=== PATIENT | male | born 1945 | race African-American/Black ===

== ENCOUNTER 2019-12-29 20:05 | Inpatient (IN) | payer MEDICARE, MEDICAID ==
[~2019-12-29] VITALS: Ht 172.7 cm; Wt 77.2 kg
[2019-12-29] MEDS ORDERED: SODIUM CHLORIDE 0.9% 1000ML BAG (SEPSIS BOLUS) IV ONE (21:15)
[2019-12-29] MEDS ORDERED: PIPERACILLIN/TAZOBACTAM 3.375GM/50ML PREMIX IV NR (21:45)
[2019-12-29 21:48] LABS: BASOPHILS % 0.3 % (0.0-2.0); HEMOGLOBIN. 14.3 g/dL (14.0-18.0); LYMPHOCYTES % 20.6 % (20.0-50.0); MEAN CORPUSCULAR HEMOGLOBIN 23.7 pg (28.0-32.0); MEAN CORPUSCULAR VOLUME 71.4 fL (80.0-94.0); MEAN PLATELET VOLUME 9.3 fl (7.4-10.4); MONOCYTES % 6.1 % (2.0-8.0); PLATELET 138 x1000/uL (130-400); RED BLOOD CELL COUNT 6.03 mill/uL (4.7-6.1); RED CELL DISTRIBUTION WIDTH 14.4 % (11.6-14.6)
[2019-12-29 21:56] LABS: CHLORIDE 110 mEq/L (98-107)
[2019-12-29 23:38] LABS: CLARITY URINE CLEAR (CLEAR); COLOR URINE YELLOW (YELLOW); KETONES URINE TRACE (NEGATIVE); LEUKOCYTE ESTERASE URINE 1+ (NEGATIVE); NITRITE URINE NEGATIVE (NEGATIVE); OCCULT BLOOD URINE TRACE (NEGATIVE); PROTEIN URINE 1+ (NEGATIVE); SPECIFIC GRAVITY URINE 1.019 (1.005-1.030)
[2019-12-30] MEDS ORDERED: ACETAMINOPHEN 325MG TABLET PO NR (00:30)
[2019-12-30] MEDS ORDERED: ONDANSETRON HCL 4MG/2ML INJ IV PRN (11:15)
[2019-12-30] MEDS: SODIUM CHLORIDE 0.9% 1,000 ML IV SCH (11:35)
[2019-12-30] MEDS ORDERED: AZITHROMYCIN 500 MG in DEXT 5% WATER 250 ML IV NR (12:15)
[2019-12-30] MEDS: ACETAMINOPHEN 325MG TABLET PO PRN ×2 (15:22→23:29)
[2019-12-30] MEDS ORDERED: ACETAMINOPHEN 325MG TABLET ONE (15:29)
[2019-12-30] MEDS: HEPARIN 5000 UNITS/ML VIAL SUBCUT SCH (21:48)
[2019-12-30] MEDS: THIAMINE HCL 100MG TABLET PO SCH (21:50)
[2019-12-30] MEDS: ASCORBIC ACID 500 MG TABLET PO SCH (21:50)
[2019-12-31] VITALS (7 sets, daily range): BP systolic 118–193; BP diastolic 75–97
[2019-12-31] MEDS ORDERED: IPRA3AMP31 NEB (01:50)
[2019-12-31] MEDS ORDERED: METO25TA6 PO (01:50)
[2019-12-31] MEDS ORDERED: ERGO2000 PO (01:50)
[2019-12-31] MEDS ORDERED: BISA10SU62 RC (01:50)
[2019-12-31] MEDS ORDERED: DOCU250C69 PO (01:50)
[2019-12-31] MEDS ORDERED: MOM PO (01:50)
[2019-12-31] MEDS: HYDROXYCHLOROQUINE SULFATE 200MG TABLET PO SCH ×3 (02:09→16:54)
[2019-12-31] MEDS: SODIUM CHLORIDE 0.9% 1,000 ML IV SCH ×2 (02:09→14:58)
[2019-12-31] MEDS: CEFTRIAXONE 1 G PREMIX 50 ML IV SCH (03:14)
[2019-12-31] MEDS: ZINC SULFATE 220 MG ( 50 ) CAPSULE PO SCH (09:03)
[2019-12-31] MEDS: THIAMINE HCL 100MG TABLET PO SCH ×2 (09:03→16:54)
[2019-12-31] MEDS: ASCORBIC ACID 500 MG TABLET PO SCH ×2 (09:04→16:54)
[2019-12-31] MEDS: HEPARIN 5000 UNITS/ML VIAL SUBCUT SCH ×2 (09:05→22:05)
[2019-12-31 10:07] LABS: BASOPHILS % 0.3 % (0.0-2.0); HEMOGLOBIN. 12.9 g/dL (14.0-18.0); LYMPHOCYTES % 16.4 % (20.0-50.0); MEAN CORPUSCULAR HEMOGLOBIN 23.6 pg (28.0-32.0); MEAN PLATELET VOLUME 9.1 fl (7.4-10.4); MONOCYTES % 3.5 % (2.0-8.0); NEUTROPHILS % 79.8 % (40.0-76.0); PLATELET 122 x1000/uL (130-400); RED BLOOD CELL COUNT 5.47 mill/uL (4.7-6.1); RED CELL DISTRIBUTION WIDTH 14.8 % (11.6-14.6)
[2019-12-31 10:14] LABS: CHLORIDE 117 mEq/L (98-107)
[2019-12-31] MEDS ORDERED: AZITHROMYCIN 500 MG in DEXT 5% WATER 250 ML IV SCH (11:15)
[2019-12-31] MEDS: AZITHROMYCIN 250 MG in DEXT 5% WATER 250 ML IV SCH (11:20)
[2019-12-31] MEDS: METOPROLOL TARTRATE 25MG TABLET PO SCH ×2 (16:56→22:04)
[2019-12-31 16:59] LABS: COVID-19 PCR RNA DETECTED
[2019-12-31 17:00] LABS: COVID-19 PCR RNA DETECTED
[2019-12-31] MEDS: ACETAMINOPHEN 325MG TABLET PO PRN (22:04)
[2020-01-01] VITALS: BP 128/82
[2020-01-01] MEDS: CEFTRIAXONE 1 G PREMIX 50 ML IV SCH (02:52)
[2020-01-01 04:00] VITALS: BP 130/68
[2020-01-01 06:25] LABS: BASOPHILS % 0.5 % (0.0-2.0); HEMATOCRIT. 38.5 % (42.0-52.0); HEMOGLOBIN. 12.4 g/dL (14.0-18.0); LYMPHOCYTES % 21.7 % (20.0-50.0); MEAN CORPUSCULAR HEMOGLOBIN 23.1 pg (28.0-32.0); MEAN CORPUSCULAR VOLUME 71.9 fL (80.0-94.0); MEAN PLATELET VOLUME 9.7 fl (7.4-10.4); MONOCYTES % 7.2 % (2.0-8.0); NEUTROPHILS % 70.6 % (40.0-76.0); PLATELET 119 x1000/uL (130-400); RED BLOOD CELL COUNT 5.36 mill/uL (4.7-6.1); RED CELL DISTRIBUTION WIDTH 14.3 % (11.6-14.6)
[2020-01-01 06:29] LABS: CHLORIDE 116 mEq/L (98-107)
[2020-01-01 08:00] VITALS: BP 137/83
[2020-01-01] MEDS: ZINC SULFATE 220 MG ( 50 ) CAPSULE PO SCH (10:32)
[2020-01-01] MEDS: HEPARIN 5000 UNITS/ML VIAL SUBCUT SCH ×2 (10:32→23:04)
[2020-01-01] MEDS: THIAMINE HCL 100MG TABLET PO SCH ×2 (10:32→19:23)
[2020-01-01] MEDS: HYDROXYCHLOROQUINE SULFATE 200MG TABLET PO SCH (10:32)
[2020-01-01] MEDS: ASCORBIC ACID 500 MG TABLET PO SCH ×2 (10:32→22:54)
[2020-01-01] MEDS: METOPROLOL TARTRATE 25MG TABLET PO SCH ×2 (10:33→23:04)
[2020-01-01] MEDS: AZITHROMYCIN 250 MG in DEXT 5% WATER 250 ML IV SCH (10:41)
[2020-01-01] MEDS ORDERED: DEXTROSE 5% WATER 1,000 ML IV SCH (11:00)
[2020-01-01 12:00] VITALS: BP 168/97
[2020-01-01 16:00] VITALS: BP 162/98
[2020-01-01 20:00] VITALS: BP 146/70
[2020-01-02] VITALS: BP 125/68
[2020-01-02] MEDS: CEFTRIAXONE 1 G PREMIX 50 ML IV SCH (03:36)
[2020-01-02 04:00] VITALS: BP 124/73
[2020-01-02 07:04] LABS: BASOPHILS % 0.4 % (0.0-2.0); HEMATOCRIT. 36.6 % (42.0-52.0); HEMOGLOBIN. 12.1 g/dL (14.0-18.0); LYMPHOCYTES % 16.8 % (20.0-50.0); MEAN CORPUSCULAR HEMOGLOBIN 23.5 pg (28.0-32.0); MEAN CORPUSCULAR VOLUME 71.3 fL (80.0-94.0); MEAN PLATELET VOLUME 9.4 fl (7.4-10.4); MONOCYTES % 5.6 % (2.0-8.0); NEUTROPHILS % 77.2 % (40.0-76.0); PLATELET 139 x1000/uL (130-400); RED BLOOD CELL COUNT 5.13 mill/uL (4.7-6.1); RED CELL DISTRIBUTION WIDTH 14.1 % (11.6-14.6)
[2020-01-02 07:24] LABS: CHLORIDE 118 mEq/L (98-107)
[2020-01-02 08:00] VITALS: BP 180/96
[2020-01-02] MEDS: THIAMINE HCL 100MG TABLET PO SCH ×3 (09:00→17:33)
[2020-01-02] MEDS: ASCORBIC ACID 500 MG TABLET PO SCH ×3 (09:00→17:33)
[2020-01-02] MEDS: METOPROLOL TARTRATE 25MG TABLET PO SCH ×3 (09:00→22:00)
[2020-01-02] MEDS: ZINC SULFATE 220 MG ( 50 ) CAPSULE PO SCH (09:37)
[2020-01-02] MEDS: HEPARIN 5000 UNITS/ML VIAL SUBCUT SCH ×2 (09:38→21:59)
[2020-01-02] MEDS: AZITHROMYCIN 250 MG in DEXT 5% WATER 250 ML IV SCH (11:54)
[2020-01-02 12:00] VITALS: BP 143/94
[2020-01-02 16:00] VITALS: BP 156/87
[2020-01-02 20:00] VITALS: BP 153/97
[2020-01-03] VITALS (10 sets, daily range): BP systolic 95–170; BP diastolic 68–106
[2020-01-03] MEDS: CEFTRIAXONE 1 G PREMIX 50 ML IV SCH (03:50)
[2020-01-03] MEDS: ACETAMINOPHEN 325MG TABLET PO PRN (04:24)
[2020-01-03 06:54] LABS: BASOPHILS % 0.4 % (0.0-2.0); HEMATOCRIT. 39.7 % (42.0-52.0); LYMPHOCYTES % 16.4 % (20.0-50.0); MEAN CORPUSCULAR HEMOGLOBIN 23.3 pg (28.0-32.0); MEAN CORPUSCULAR VOLUME 71.4 fL (80.0-94.0); MEAN PLATELET VOLUME 9.7 fl (7.4-10.4); MONOCYTES % 5.3 % (2.0-8.0); NEUTROPHILS % 77.9 % (40.0-76.0); PLATELET 166 x1000/uL (130-400); RED BLOOD CELL COUNT 5.57 mill/uL (4.7-6.1); RED CELL DISTRIBUTION WIDTH 14.2 % (11.6-14.6)
[2020-01-03 06:56] LABS: CHLORIDE 118 mEq/L (98-107)
[2020-01-03] MEDS: THIAMINE HCL 100MG TABLET PO SCH ×2 (09:34→17:00)
[2020-01-03] MEDS: ZINC SULFATE 220 MG ( 50 ) CAPSULE PO SCH (09:34)
[2020-01-03] MEDS: ASCORBIC ACID 500 MG TABLET PO SCH ×2 (09:34→17:00)
[2020-01-03] MEDS: HEPARIN 5000 UNITS/ML VIAL SUBCUT SCH (09:35)
[2020-01-03] MEDS: METOPROLOL TARTRATE 25MG TABLET PO SCH ×2 (09:37→22:00)
[2020-01-03] MEDS: NYSTATIN 100,000 UNITS/ML 5ML UDC SSW SCH ×2 (12:46→17:56)
[2020-01-03] MEDS: AZITHROMYCIN 250 MG in DEXT 5% WATER 250 ML IV SCH (15:22)
[2020-01-03 15:37] LABS: BG BASE EXCESS 0.1 mmol/L (-2.0-2.0); BG DEOXYHEMOGLOBIN 12.1 % (0.0-5.0); BG FRACTION INSPIRED OXYGEN 100; BG HCO3 ACT 24.4 mmol/L (22.0-26.0); BG METHEMOGLOBIN 0.2 % (0.0-1.5); BG OXYGEN SATURATION 87.9 % (92.0-98.5); BG OXYHEMOGLOBIN 87.7 % (94.0-97.0); BG PCO2 38.6 mmHg (35.0-45.0); BG PH 7.419 (7.350-7.450); BG PO2 56.3 mmHg (75.0-100.0); BG SAMPLE SITE RIGHT BRACHIAL; BG VENT MODE MASK - NRB
[2020-01-03] MEDS: METHYLPREDNISOLONE SOD SUCC 40 MG/ML VIAL IV SCH (17:56)
[2020-01-03] MEDS ORDERED: ALBUTEROL 6.7GM HFA INHALER ORI SCH (18:00)
[2020-01-03] MEDS ORDERED: FENTANYL CITRATE/PF 500 MCG in SODIUM CHLORIDE 0.9% 40 ML IV PRN (22:00)
[2020-01-03 22:47] LABS: BG CARBOXYHEMOGLOBIN 0.3 % (0.5-1.5); BG DEOXYHEMOGLOBIN 2.3 % (0.0-5.0); BG FRACTION INSPIRED OXYGEN 100; BG HCO3 ACT 22.8 mmol/L (22.0-26.0); BG METHEMOGLOBIN 0.4 % (0.0-1.5); BG OXYGEN SATURATION 97.7 % (92.0-98.5); BG PCO2 38.9 mmHg (35.0-45.0); BG PH 7.385 (7.350-7.450); BG PO2 114.9 mmHg (75.0-100.0); BG SAMPLE SITE RIGHT FEMORAL; BG TIDAL VOLUME(mL) 500 mL; BG TOTAL HEMOGLOBIN 13.1 g/dL (12.0-18.0); BG VENT MODE VENT - A/C; BG VENT RATE 16 set
[2020-01-03] MEDS: PROPOFOL 10MG/ML 100ML 100 ML IV PRN (23:17)
[2020-01-03] MEDS ORDERED: NOREPINEPHRINE 32 MG in DEXT 5% WATER 468 ML IV PRN (23:30)
[2020-01-04] VITALS (44 sets, daily range): BP systolic 74–191; BP diastolic 48–94
[2020-01-04] MEDS: NYSTATIN 100,000 UNITS/ML 5ML UDC SSW SCH ×4 (01:33→17:00)
[2020-01-04] MEDS: GUAIFENESIN 600MG ER TABLET PO SCH ×3 (01:33→21:13)
[2020-01-04] MEDS: HEPARIN 5000 UNITS/ML VIAL SUBCUT SCH ×3 (01:33→21:13)
[2020-01-04] MEDS: CEFTRIAXONE 1 G PREMIX 50 ML IV SCH (03:18)
[2020-01-04] MEDS: PROPOFOL 10MG/ML 100ML 100 ML IV PRN ×3 (03:56→17:04)
[2020-01-04] MEDS: FENTANYL CITRATE/PF 1,000 MCG in SODIUM CHLORIDE 0.9% 80 ML IV PRN (05:26)
[2020-01-04] MEDS: THIAMINE HCL 100MG TABLET PO SCH (08:33)
[2020-01-04] MEDS: METHYLPREDNISOLONE SOD SUCC 40 MG/ML VIAL IV SCH ×2 (08:33→16:59)
[2020-01-04] MEDS: ASCORBIC ACID 500 MG TABLET PO SCH (08:34)
[2020-01-04] MEDS: ZINC SULFATE 220 MG ( 50 ) CAPSULE PO SCH (08:34)
[2020-01-04] MEDS: METOPROLOL TARTRATE 25MG TABLET PO SCH ×2 (09:00→20:57)
[2020-01-04 10:35] LABS: BG BASE EXCESS -3.7 mmol/L (-2.0-2.0); BG CARBOXYHEMOGLOBIN 0.3 % (0.5-1.5); BG FRACTION INSPIRED OXYGEN 100; BG HCO3 ACT 21.5 mmol/L (22.0-26.0); BG METHEMOGLOBIN 0.2 % (0.0-1.5); BG OXYHEMOGLOBIN 96.5 % (94.0-97.0); BG PCO2 39.5 mmHg (35.0-45.0); BG PH 7.353 (7.350-7.450); BG PO2 100.5 mmHg (75.0-100.0); BG SAMPLE SITE RIGHT RADIAL; BG TIDAL VOLUME(mL) 500 mL; BG TOTAL HEMOGLOBIN 13.1 g/dL (12.0-18.0); BG VENT MODE VENT - A/C; BG VENT RATE 16 set
[2020-01-04] MEDS: PIPERACILLIN/TAZOBACTAM 3.375 G in DEXT 5% WATER 100 ML IV SCH ×2 (13:41→21:12)
[2020-01-04 16:02] LABS: BASOPHILS % 0.4 % (0.0-2.0); HEMATOCRIT. 38.1 % (42.0-52.0); HEMOGLOBIN. 12.3 g/dL (14.0-18.0); MEAN CORPUSCULAR HEMOGLOBIN 23.4 pg (28.0-32.0); MEAN CORPUSCULAR VOLUME 72.5 fL (80.0-94.0); MEAN PLATELET VOLUME 9.6 fl (7.4-10.4); MONOCYTES % 3.1 % (2.0-8.0); NEUTROPHILS % 84.5 % (40.0-76.0); PLATELET 188 x1000/uL (130-400); RED BLOOD CELL COUNT 5.25 mill/uL (4.7-6.1); RED CELL DISTRIBUTION WIDTH 14.8 % (11.6-14.6)
[2020-01-04 16:11] LABS: CHLORIDE 117 mEq/L (98-107)
[2020-01-04 16:16] LABS: PHOSPHORUS 6.4 mg/dL (2.5-4.9)
[2020-01-04] MEDS ORDERED: IOHEXOL-350 100 ML BOTTLE ONE (16:53)
[2020-01-04] MEDS: DOPAMINE 800MG PREMIX (DOUBLE) 250 ML IV PRN (17:51)
[2020-01-04 22:00] LABS: BG BASE EXCESS -9.1 mmol/L (-2.0-2.0); BG CARBOXYHEMOGLOBIN 0.3 % (0.5-1.5); BG DEOXYHEMOGLOBIN 2.8 % (0.0-5.0); BG FRACTION INSPIRED OXYGEN 100; BG HCO3 ACT 16.2 mmol/L (22.0-26.0); BG METHEMOGLOBIN 0.3 % (0.0-1.5); BG OXYGEN SATURATION 97.2 % (92.0-98.5); BG OXYHEMOGLOBIN 96.6 % (94.0-97.0); BG PCO2 33.5 mmHg (35.0-45.0); BG PH 7.302 (7.350-7.450); BG PO2 107.4 mmHg (75.0-100.0); BG SAMPLE SITE RIGHT BRACHIAL; BG TIDAL VOLUME(mL) 450 mL; BG TOTAL HEMOGLOBIN 13.3 g/dL (12.0-18.0); BG VENT MODE VENT - A/C; BG VENT RATE 16 set
[2020-01-05] VITALS (49 sets, daily range): BP systolic 104–174; BP diastolic 57–88
[2020-01-05] MEDS: PIPERACILLIN/TAZOBACTAM 3.375 G in DEXT 5% WATER 100 ML IV SCH ×3 (03:26→13:17)
[2020-01-05] MEDS ORDERED: PROPOFOL 10MG/ML 100ML 100 ML IV PRN (04:30)
[2020-01-05 04:35] LABS: CHLORIDE 116 mEq/L (98-107)
[2020-01-05] MEDS: NYSTATIN 100,000 UNITS/ML 5ML UDC SSW SCH ×4 (06:00→17:00)
[2020-01-05 06:28] LABS: BASOPHILS % 0.4 % (0.0-2.0); HEMATOCRIT. 43.1 % (42.0-52.0); HEMOGLOBIN. 13.7 g/dL (14.0-18.0); LYMPHOCYTES % 9.7 % (20.0-50.0); MEAN CORPUSCULAR VOLUME 72.3 fL (80.0-94.0); MEAN PLATELET VOLUME 9.1 fl (7.4-10.4); MONOCYTES % 3.7 % (2.0-8.0); NEUTROPHILS % 86.2 % (40.0-76.0); PLATELET 260 x1000/uL (130-400); RED BLOOD CELL COUNT 5.96 mill/uL (4.7-6.1); RED CELL DISTRIBUTION WIDTH 15.1 % (11.6-14.6)
[2020-01-05] MEDS: METHYLPREDNISOLONE SOD SUCC 40 MG/ML VIAL IV SCH ×2 (08:31→17:00)
[2020-01-05] MEDS: HEPARIN 5000 UNITS/ML VIAL SUBCUT SCH ×2 (08:32→20:12)
[2020-01-05] MEDS: ZINC SULFATE 220 MG ( 50 ) CAPSULE PO SCH (08:32)
[2020-01-05] MEDS: FENTANYL CITRATE/PF 1,000 MCG in SODIUM CHLORIDE 0.9% 80 ML IV PRN (08:33)
[2020-01-05] MEDS: GUAIFENESIN 600MG ER TABLET PO SCH ×2 (08:33→20:12)
[2020-01-05 09:49] LABS: BG BASE EXCESS -5.4 mmol/L (-2.0-2.0); BG CARBOXYHEMOGLOBIN 0.3 % (0.5-1.5); BG DEOXYHEMOGLOBIN 2.9 % (0.0-5.0); BG FRACTION INSPIRED OXYGEN 100; BG HCO3 ACT 20.3 mmol/L (22.0-26.0); BG METHEMOGLOBIN 0.3 % (0.0-1.5); BG OXYGEN SATURATION 97.1 % (92.0-98.5); BG OXYHEMOGLOBIN 96.5 % (94.0-97.0); BG PCO2 40.4 mmHg (35.0-45.0); BG PO2 102.8 mmHg (75.0-100.0); BG SAMPLE SITE RIGHT BRACHIAL; BG TIDAL VOLUME(mL) 450 mL; BG TOTAL HEMOGLOBIN 13.2 g/dL (12.0-18.0); BG VENT MODE VENT - A/C; BG VENT RATE 16 set
[2020-01-05] MEDS: DEXTROSE 5% WATER 1,000 ML IV SCH (12:00)
[2020-01-05] MEDS: MIDAZOLAM HCL 100 MG in DEXT 5% WATER 80 ML IV PRN (15:08)
[2020-01-05] MEDS: PIPERACILLIN/TAZOBACTAM 2.25 G in DEXTROSE 5% WATER 50 ML IV SCH (20:12)
[2020-01-06] VITALS (96 sets, daily range): BP systolic 93–237; BP diastolic 58–133
[2020-01-06] MEDS: FENTANYL CITRATE/PF 1,000 MCG in SODIUM CHLORIDE 0.9% 80 ML IV PRN ×2 (00:37→14:38)
[2020-01-06] MEDS: PIPERACILLIN/TAZOBACTAM 2.25 G in DEXTROSE 5% WATER 50 ML IV SCH ×4 (02:47→21:08)
[2020-01-06] MEDS: DEXTROSE 5% WATER 1,000 ML IV SCH ×2 (02:48→17:44)
[2020-01-06 05:53] LABS: HEMATOCRIT. 40.2 % (42.0-52.0); HEMOGLOBIN. 12.7 g/dL (14.0-18.0); MEAN CORPUSCULAR VOLUME 72.8 fL (80.0-94.0); MEAN PLATELET VOLUME 8.7 fl (7.4-10.4); PLATELET 278 x1000/uL (130-400); RED BLOOD CELL COUNT 5.52 mill/uL (4.7-6.1)
[2020-01-06] MEDS: NYSTATIN 100,000 UNITS/ML 5ML UDC SSW SCH ×5 (06:00→23:59)
[2020-01-06 06:03] LABS: CHLORIDE 112 mEq/L (98-107)
[2020-01-06 06:11] LABS: CREATINE KINASE 135 IU/L (39-308)
[2020-01-06] MEDS: METHYLPREDNISOLONE SOD SUCC 40 MG/ML VIAL IV SCH (09:13)
[2020-01-06] MEDS: ZINC SULFATE 220 MG ( 50 ) CAPSULE PO SCH (09:13)
[2020-01-06] MEDS: HEPARIN 5000 UNITS/ML VIAL SUBCUT SCH ×2 (09:14→21:08)
[2020-01-06] MEDS: GUAIFENESIN 600MG ER TABLET PO SCH ×2 (09:14→21:08)
[2020-01-06 10:15] LABS: NUCLEATED RED BLOOD CELLS 1 /100 WBC; PLATELET ESTIMATE NORMAL
[2020-01-06 14:10] LABS: T4 FREE 1.08 ng/dL (0.76-1.46)
[2020-01-06] MEDS: MIDAZOLAM HCL 100 MG in DEXT 5% WATER 80 ML IV PRN (14:38)
[2020-01-06] MEDS: DOPAMINE 800MG PREMIX (DOUBLE) 250 ML IV PRN (17:37)
[2020-01-06] MEDS: DOXYCYCLINE 100 MG in DEXT 5% WATER 100 ML IV SCH (23:23)
[2020-01-07] VITALS (92 sets, daily range): BP systolic 91–158; BP diastolic 54–82
[2020-01-07] MEDS: PIPERACILLIN/TAZOBACTAM 2.25 G in DEXTROSE 5% WATER 50 ML IV SCH ×4 (01:27→20:47)
[2020-01-07] MEDS: FENTANYL CITRATE/PF 1,000 MCG in SODIUM CHLORIDE 0.9% 80 ML IV PRN ×2 (04:17→16:23)
[2020-01-07 05:30] LABS: HEMATOCRIT 38.3 % (42.0-52.0); HEMOGLOBIN 12.5 g/dL (14.0-18.0); MEAN CORPUSCULAR HEMOGLOBIN 23.5 pg (28.0-32.0); MEAN CORPUSCULAR VOLUME 72.2 fL (80.0-94.0); PLATELET 246 x1000/uL (130-400); RED BLOOD CELL COUNT 5.31 mill/uL (4.7-6.1); RED CELL DISTRIBUTION WIDTH 14.9 % (11.6-14.6)
[2020-01-07] MEDS: NYSTATIN 100,000 UNITS/ML 5ML UDC SSW SCH ×3 (05:31→17:30)
[2020-01-07 08:08] LABS: BG BASE EXCESS -4.6 mmol/L (-2.0-2.0); BG DEOXYHEMOGLOBIN 1.4 % (0.0-5.0); BG HCO3 ACT 21.4 mmol/L (22.0-26.0); BG METHEMOGLOBIN 0.3 % (0.0-1.5); BG OXYGEN SATURATION 98.6 % (92.0-98.5); BG OXYHEMOGLOBIN 98.3 % (94.0-97.0); BG PCO2 42.7 mmHg (35.0-45.0); BG PH 7.317 (7.350-7.450); BG PO2 141.1 mmHg (75.0-100.0); BG SAMPLE SITE RIGHT BRACHIAL; BG TIDAL VOLUME(mL) 450 mL; BG TOTAL HEMOGLOBIN 13.1 g/dL (12.0-18.0); BG VENT MODE VENT - A/C; BG VENT RATE 18 set
[2020-01-07] MEDS: METHYLPREDNISOLONE SOD SUCC 40 MG/ML VIAL IV SCH ×2 (08:35→16:22)
[2020-01-07] MEDS: HEPARIN 5000 UNITS/ML VIAL SUBCUT SCH (08:35)
[2020-01-07] MEDS: ZINC SULFATE 220 MG ( 50 ) CAPSULE PO SCH (08:35)
[2020-01-07] MEDS: GUAIFENESIN 600MG ER TABLET PO SCH ×2 (09:00→21:15)
[2020-01-07] MEDS: DOXYCYCLINE 100 MG in DEXT 5% WATER 100 ML IV SCH ×2 (10:27→21:01)
[2020-01-07] MEDS ORDERED: LIDOCAINE HCL 1% 20ML VIAL (Pyxis) INJ ONE (13:42)
[2020-01-07 16:07] LABS: PROTHROMBIN TIME 11.2 sec (9.6-11.0)
[2020-01-07] MEDS: DEXTROSE 5% WATER 1,000 ML IV SCH (17:29)
[2020-01-07] MEDS: ENOXAPARIN 80MG/0.8ML SYR SUBCUT SCH (21:16)
[2020-01-08] VITALS (95 sets, daily range): BP systolic 107–195; BP diastolic 40–102
[2020-01-08] MEDS: NYSTATIN 100,000 UNITS/ML 5ML UDC SSW SCH ×5 (00:48→23:37)
[2020-01-08] MEDS: PIPERACILLIN/TAZOBACTAM 2.25 G in DEXTROSE 5% WATER 50 ML IV SCH ×4 (01:37→20:46)
[2020-01-08] MEDS: MIDAZOLAM HCL 100 MG in DEXT 5% WATER 80 ML IV PRN (05:13)
[2020-01-08] MEDS: FENTANYL CITRATE/PF 1,000 MCG in SODIUM CHLORIDE 0.9% 80 ML IV PRN (05:28)
[2020-01-08 08:05] LABS: BG BASE EXCESS -2.8 mmol/L (-2.0-2.0); BG CARBOXYHEMOGLOBIN 0.3 % (0.5-1.5); BG DEOXYHEMOGLOBIN 3.7 % (0.0-5.0); BG FRACTION INSPIRED OXYGEN 90; BG HCO3 ACT 22.3 mmol/L (22.0-26.0); BG METHEMOGLOBIN 0.3 % (0.0-1.5); BG OXYGEN SATURATION 96.3 % (92.0-98.5); BG OXYHEMOGLOBIN 95.7 % (94.0-97.0); BG PCO2 39.6 mmHg (35.0-45.0); BG PH 7.368 (7.350-7.450); BG SAMPLE SITE RIGHT BRACHIAL; BG TIDAL VOLUME(mL) 450 mL; BG TOTAL HEMOGLOBIN 12.8 g/dL (12.0-18.0); BG VENT MODE VENT - A/C; BG VENT RATE 20 set
[2020-01-08] MEDS: ZINC SULFATE 220 MG ( 50 ) CAPSULE PO SCH (08:13)
[2020-01-08] MEDS: ENOXAPARIN 80MG/0.8ML SYR SUBCUT SCH ×2 (08:14→20:45)
[2020-01-08] MEDS: GUAIFENESIN 600MG ER TABLET PO SCH (08:14)
[2020-01-08] MEDS: METHYLPREDNISOLONE SOD SUCC 40 MG/ML VIAL IV SCH ×2 (08:15→18:00)
[2020-01-08] MEDS: DEXTROSE 5% WATER 1,000 ML IV SCH (08:18)
[2020-01-08] MEDS: DOXYCYCLINE 100 MG in DEXT 5% WATER 100 ML IV SCH ×2 (09:07→20:46)
[2020-01-08] MEDS ORDERED: FAMOTIDINE 20MG/2ML VIAL IV ONE (10:15)
[2020-01-08] MEDS ORDERED: FAMOTIDINE 20MG/2ML VIAL IV NR (17:00)
[2020-01-09] VITALS (95 sets, daily range): BP systolic 107–141; BP diastolic 59–103
[2020-01-09] MEDS: PIPERACILLIN/TAZOBACTAM 2.25 G in DEXTROSE 5% WATER 50 ML IV SCH ×4 (01:28→20:22)
[2020-01-09] MEDS: NYSTATIN 100,000 UNITS/ML 5ML UDC SSW SCH ×3 (05:06→17:21)
[2020-01-09 05:20] LABS: HEMATOCRIT. 32.1 % (42.0-52.0); HEMOGLOBIN. 10.5 g/dL (14.0-18.0); MEAN CORPUSCULAR HEMOGLOBIN 23.2 pg (28.0-32.0); MEAN CORPUSCULAR VOLUME 70.8 fL (80.0-94.0); PLATELET 207 x1000/uL (130-400); RED BLOOD CELL COUNT 4.53 mill/uL (4.7-6.1); RED CELL DISTRIBUTION WIDTH 14.1 % (11.6-14.6)
[2020-01-09 08:12] LABS: PLATELET ESTIMATE NORMAL
[2020-01-09 08:16] LABS: BG BASE EXCESS -2.9 mmol/L (-2.0-2.0); BG CARBOXYHEMOGLOBIN 0.3 % (0.5-1.5); BG FRACTION INSPIRED OXYGEN 90; BG HCO3 ACT 22.3 mmol/L (22.0-26.0); BG METHEMOGLOBIN 0.2 % (0.0-1.5); BG OXYHEMOGLOBIN 98.5 % (94.0-97.0); BG PCO2 40.2 mmHg (35.0-45.0); BG PH 7.362 (7.350-7.450); BG PO2 171.3 mmHg (75.0-100.0); BG SAMPLE SITE RIGHT BRACHIAL; BG TIDAL VOLUME(mL) 450 mL; BG TOTAL HEMOGLOBIN 13.5 g/dL (12.0-18.0); BG VENT MODE VENT - A/C; BG VENT RATE 20 set
[2020-01-09] MEDS: ZINC SULFATE 220 MG ( 50 ) CAPSULE PO SCH (10:21)
[2020-01-09] MEDS: DOXYCYCLINE 100 MG in DEXT 5% WATER 100 ML IV SCH ×2 (10:21→20:22)
[2020-01-09] MEDS: METHYLPREDNISOLONE SOD SUCC 40 MG/ML VIAL IV SCH ×2 (10:21→17:21)
[2020-01-09] MEDS: ENOXAPARIN 80MG/0.8ML SYR SUBCUT SCH ×2 (10:22→21:00)
[2020-01-09] MEDS: FENTANYL CITRATE/PF 1,000 MCG in SODIUM CHLORIDE 0.9% 80 ML IV PRN (15:33)
[2020-01-09] MEDS: MIDAZOLAM HCL 100 MG in DEXT 5% WATER 80 ML IV PRN (19:25)
[2020-01-09] MEDS: FAMOTIDINE 20MG/2ML VIAL IV SCH (20:22)
[2020-01-10] VITALS (93 sets, daily range): BP systolic 95–180; BP diastolic 64–107
[2020-01-10] MEDS: NYSTATIN 100,000 UNITS/ML 5ML UDC SSW SCH ×3 (02:30→11:37)
[2020-01-10 09:55] LABS: BG BASE EXCESS -2.5 mmol/L (-2.0-2.0); BG CARBOXYHEMOGLOBIN 0.2 % (0.5-1.5); BG DEOXYHEMOGLOBIN 3.1 % (0.0-5.0); BG FRACTION INSPIRED OXYGEN 70; BG HCO3 ACT 22.3 mmol/L (22.0-26.0); BG METHEMOGLOBIN 0.3 % (0.0-1.5); BG OXYGEN SATURATION 96.9 % (92.0-98.5); BG OXYHEMOGLOBIN 96.4 % (94.0-97.0); BG PCO2 38.3 mmHg (35.0-45.0); BG PH 7.382 (7.350-7.450); BG PO2 100.4 mmHg (75.0-100.0); BG SAMPLE SITE RIGHT RADIAL; BG TIDAL VOLUME(mL) 450 mL; BG TOTAL HEMOGLOBIN 11.3 g/dL (12.0-18.0); BG VENT MODE VENT - A/C; BG VENT RATE 20 set
[2020-01-10] MEDS: DOXYCYCLINE 100 MG in DEXT 5% WATER 100 ML IV SCH ×2 (09:58→20:38)
[2020-01-10] MEDS: ENOXAPARIN 80MG/0.8ML SYR SUBCUT SCH (09:58)
[2020-01-10] MEDS: METHYLPREDNISOLONE SOD SUCC 40 MG/ML VIAL IV SCH ×2 (09:58→17:18)
[2020-01-10] MEDS: ZINC SULFATE 220 MG ( 50 ) CAPSULE PO SCH (09:59)
[2020-01-10] MEDS: FAMOTIDINE 20MG/2ML VIAL IV SCH (20:38)
[2020-01-11] VITALS (100 sets, daily range): BP systolic 106–192; BP diastolic 67–102
[2020-01-11] MEDS: MIDAZOLAM HCL 100 MG in DEXT 5% WATER 80 ML IV PRN ×2 (00:13→16:26)
[2020-01-11 08:17] LABS: BG BASE EXCESS -2.5 mmol/L (-2.0-2.0); BG CARBOXYHEMOGLOBIN 0.3 % (0.5-1.5); BG HCO3 ACT 21.7 mmol/L (22.0-26.0); BG METHEMOGLOBIN 0.3 % (0.0-1.5); BG OXYHEMOGLOBIN 96.4 % (94.0-97.0); BG PCO2 35.5 mmHg (35.0-45.0); BG PH 7.405 (7.350-7.450); BG PO2 92.3 mmHg (75.0-100.0); BG SAMPLE SITE RIGHT RADIAL; BG TIDAL VOLUME(mL) 450 mL; BG TOTAL HEMOGLOBIN 11.6 g/dL (12.0-18.0); BG VENT MODE VENT - A/C; BG VENT RATE 20 set
[2020-01-11] MEDS: ZINC SULFATE 220 MG ( 50 ) CAPSULE PO SCH (08:32)
[2020-01-11] MEDS: METHYLPREDNISOLONE SOD SUCC 40 MG/ML VIAL IV SCH ×2 (08:33→16:05)
[2020-01-11] MEDS: DOXYCYCLINE 100 MG in DEXT 5% WATER 100 ML IV SCH (08:36)
[2020-01-11 18:24] LABS: HEMATOCRIT. 34.7 % (42.0-52.0); HEMOGLOBIN. 11.5 g/dL (14.0-18.0); MEAN CORPUSCULAR HEMOGLOBIN 23.4 pg (28.0-32.0); MEAN CORPUSCULAR VOLUME 70.9 fL (80.0-94.0); MEAN PLATELET VOLUME 8.8 fl (7.4-10.4); PLATELET 237 x1000/uL (130-400); RED CELL DISTRIBUTION WIDTH 14.1 % (11.6-14.6)
[2020-01-11] MEDS: FENTANYL CITRATE/PF 1,000 MCG in SODIUM CHLORIDE 0.9% 80 ML IV PRN (18:25)
[2020-01-11 20:19] LABS: PLATELET ESTIMATE NORMAL
[2020-01-11] MEDS: FAMOTIDINE 20MG/2ML VIAL IV SCH (21:19)
[2020-01-12] VITALS (79 sets, daily range): BP systolic 97–157; BP diastolic 25–102
[2020-01-12 05:41] LABS: HEMOGLOBIN. 11.6 g/dL (14.0-18.0); MEAN CORPUSCULAR HEMOGLOBIN 23.7 pg (28.0-32.0); MEAN CORPUSCULAR VOLUME 71.5 fL (80.0-94.0); MEAN PLATELET VOLUME 9.1 fl (7.4-10.4); PLATELET 231 x1000/uL (130-400)
[2020-01-12] MEDS: METHYLPREDNISOLONE SOD SUCC 40 MG/ML VIAL IV SCH ×2 (09:11→17:24)
[2020-01-12] MEDS: ZINC SULFATE 220 MG ( 50 ) CAPSULE PO SCH (09:11)
[2020-01-12 12:15] LABS: PLATELET ESTIMATE NORMAL
[2020-01-12] MEDS: MIDAZOLAM HCL 100 MG in DEXT 5% WATER 80 ML IV PRN (12:22)
[2020-01-12] MEDS: FENTANYL CITRATE/PF 1,000 MCG in SODIUM CHLORIDE 0.9% 80 ML IV PRN (20:28)
[2020-01-12] MEDS: FAMOTIDINE 20MG/2ML VIAL IV SCH (20:34)
[2020-01-13] VITALS (56 sets, daily range): BP systolic 102–157; BP diastolic 62–80
[2020-01-13] MEDS: MIDAZOLAM HCL 100 MG in DEXT 5% WATER 80 ML IV PRN (00:24)
[2020-01-13] MEDS: DOPAMINE 800MG PREMIX (DOUBLE) 250 ML IV PRN (05:45)
[2020-01-13 08:20] LABS: BG BASE EXCESS -7.8 mmol/L (-2.0-2.0); BG CARBOXYHEMOGLOBIN 0.2 % (0.5-1.5); BG FRACTION INSPIRED OXYGEN 70; BG HCO3 ACT 16.9 mmol/L (22.0-26.0); BG METHEMOGLOBIN 0.1 % (0.0-1.5); BG OXYHEMOGLOBIN 97.7 % (94.0-97.0); BG PCO2 31.9 mmHg (35.0-45.0); BG PH 7.343 (7.350-7.450); BG PO2 130.8 mmHg (75.0-100.0); BG SAMPLE SITE RIGHT RADIAL; BG TIDAL VOLUME(mL) 450 mL; BG TOTAL HEMOGLOBIN 10.4 g/dL (12.0-18.0); BG VENT MODE VENT - PCV; BG VENT RATE 20 set
[2020-01-13] MEDS: METHYLPREDNISOLONE SOD SUCC 40 MG/ML VIAL IV SCH ×2 (09:29→17:00)
[2020-01-13] MEDS: ZINC SULFATE 220 MG ( 50 ) CAPSULE PO SCH (09:30)
[2020-01-13] MEDS: FAMOTIDINE 20MG/2ML VIAL IV SCH (21:36)
[2020-01-14] VITALS (56 sets, daily range): BP systolic 92–157; BP diastolic 62–97
[2020-01-14 05:56] LABS: HEMATOCRIT. 37.5 % (42.0-52.0); HEMOGLOBIN. 12.2 g/dL (14.0-18.0); MEAN CORPUSCULAR HEMOGLOBIN 23.7 pg (28.0-32.0); MEAN CORPUSCULAR VOLUME 72.6 fL (80.0-94.0); MEAN PLATELET VOLUME 9.1 fl (7.4-10.4); PLATELET 272 x1000/uL (130-400); RED BLOOD CELL COUNT 5.16 mill/uL (4.7-6.1); RED CELL DISTRIBUTION WIDTH 14.7 % (11.6-14.6)
[2020-01-14 08:15] LABS: NUCLEATED RED BLOOD CELLS 1 /100 WBC; PLATELET ESTIMATE NORMAL
[2020-01-14 08:38] LABS: BG CARBOXYHEMOGLOBIN 0.3 % (0.5-1.5); BG DEOXYHEMOGLOBIN 1.4 % (0.0-5.0); BG FRACTION INSPIRED OXYGEN 70; BG HCO3 ACT 24.1 mmol/L (22.0-26.0); BG METHEMOGLOBIN 0.1 % (0.0-1.5); BG OXYGEN SATURATION 98.6 % (92.0-98.5); BG OXYHEMOGLOBIN 98.2 % (94.0-97.0); BG PCO2 41.5 mmHg (35.0-45.0); BG PH 7.381 (7.350-7.450); BG PO2 146.8 mmHg (75.0-100.0); BG SAMPLE SITE RIGHT RADIAL; BG TIDAL VOLUME(mL) 450 mL; BG TOTAL HEMOGLOBIN 12.5 g/dL (12.0-18.0); BG VENT MODE VENT - PCV; BG VENT RATE 20 set
[2020-01-14] MEDS: ZINC SULFATE 220 MG ( 50 ) CAPSULE PO SCH (08:49)
[2020-01-14] MEDS: METHYLPREDNISOLONE SOD SUCC 40 MG/ML VIAL IV SCH ×2 (08:49→17:14)
[2020-01-14] MEDS: FAMOTIDINE 20MG/2ML VIAL IV SCH (21:00)
[2020-01-14] MEDS: ENOXAPARIN 80MG/0.8ML SYR SUBCUT SCH (22:15)
[2020-01-15] VITALS (89 sets, daily range): BP systolic 89–186; BP diastolic 62–101
[2020-01-15 05:59] LABS: HEMATOCRIT. 37.5 % (42.0-52.0); HEMOGLOBIN. 12.3 g/dL (14.0-18.0); MEAN CORPUSCULAR HEMOGLOBIN 23.5 pg (28.0-32.0); MEAN CORPUSCULAR VOLUME 71.5 fL (80.0-94.0); MEAN PLATELET VOLUME 9.2 fl (7.4-10.4); PLATELET 193 x1000/uL (130-400); RED BLOOD CELL COUNT 5.24 mill/uL (4.7-6.1); RED CELL DISTRIBUTION WIDTH 14.4 % (11.6-14.6)
[2020-01-15] MEDS: METHYLPREDNISOLONE SOD SUCC 40 MG/ML VIAL IV SCH (08:58)
[2020-01-15] MEDS: ZINC SULFATE 220 MG ( 50 ) CAPSULE PO SCH (08:59)
[2020-01-15] MEDS: ENOXAPARIN 80MG/0.8ML SYR SUBCUT SCH ×2 (09:00→20:29)
[2020-01-15] MEDS: FENTANYL CITRATE/PF 1,000 MCG in SODIUM CHLORIDE 0.9% 80 ML IV PRN (09:06)
[2020-01-15 09:16] LABS: BG BASE EXCESS -0.1 mmol/L (-2.0-2.0); BG CARBOXYHEMOGLOBIN 0.5 % (0.5-1.5); BG DEOXYHEMOGLOBIN 2.4 % (0.0-5.0); BG FRACTION INSPIRED OXYGEN 50; BG HCO3 ACT 22.7 mmol/L (22.0-26.0); BG OXYGEN SATURATION 97.6 % (92.0-98.5); BG OXYHEMOGLOBIN 97.1 % (94.0-97.0); BG PCO2 31.2 mmHg (35.0-45.0); BG PO2 95.2 mmHg (75.0-100.0); BG SAMPLE SITE RIGHT RADIAL; BG TIDAL VOLUME(mL) 450 mL; BG TOTAL HEMOGLOBIN 11.9 g/dL (12.0-18.0); BG VENT MODE VENT - PCV; BG VENT RATE 20 set
[2020-01-15] MEDS ORDERED: SODIUM POLYSTYRENE SULFONATE 15 G/60 ML BOT PO NR (11:30)
[2020-01-15 11:38] LABS: PLATELET ESTIMATE NORMAL
[2020-01-15] MEDS: FAMOTIDINE 20MG/2ML VIAL IV SCH (20:29)
[2020-01-15] MEDS: MIDAZOLAM HCL 100 MG in DEXT 5% WATER 80 ML IV PRN (22:50)
[2020-01-16] VITALS (92 sets, daily range): BP systolic 84–168; BP diastolic 57–102
[2020-01-16] MEDS: FENTANYL CITRATE/PF 1,000 MCG in SODIUM CHLORIDE 0.9% 80 ML IV PRN (05:17)
[2020-01-16 05:44] LABS: HEMATOCRIT. 33.6 % (42.0-52.0); HEMOGLOBIN. 10.9 g/dL (14.0-18.0); MEAN CORPUSCULAR HEMOGLOBIN 23.4 pg (28.0-32.0); MEAN CORPUSCULAR VOLUME 71.9 fL (80.0-94.0); MEAN PLATELET VOLUME 10.9 fl (7.4-10.4); PLATELET 197 x1000/uL (130-400); RED BLOOD CELL COUNT 4.67 mill/uL (4.7-6.1); RED CELL DISTRIBUTION WIDTH 14.4 % (11.6-14.6)
[2020-01-16 06:00] LABS: PHOSPHORUS 3.7 mg/dL (2.5-4.9)
[2020-01-16] MEDS: ENOXAPARIN 80MG/0.8ML SYR SUBCUT SCH (08:06)
[2020-01-16] MEDS: METHYLPREDNISOLONE SOD SUCC 40 MG/ML VIAL IV SCH (08:06)
[2020-01-16] MEDS: ZINC SULFATE 220 MG ( 50 ) CAPSULE PO SCH (08:06)
[2020-01-16 08:31] LABS: PLATELET ESTIMATE NORMAL
[2020-01-16 08:47] LABS: BG BASE EXCESS 2.7 mmol/L (-2.0-2.0); BG CARBOXYHEMOGLOBIN 0.3 % (0.5-1.5); BG DEOXYHEMOGLOBIN 6.5 % (0.0-5.0); BG FRACTION INSPIRED OXYGEN 50; BG HCO3 ACT 27.2 mmol/L (22.0-26.0); BG METHEMOGLOBIN 0.3 % (0.0-1.5); BG OXYGEN SATURATION 93.5 % (92.0-98.5); BG OXYHEMOGLOBIN 92.9 % (94.0-97.0); BG PCO2 41.2 mmHg (35.0-45.0); BG PH 7.437 (7.350-7.450); BG PO2 69.3 mmHg (75.0-100.0); BG SAMPLE SITE RIGHT RADIAL; BG TIDAL VOLUME(mL) 450 mL; BG TOTAL HEMOGLOBIN 11.2 g/dL (12.0-18.0); BG VENT MODE VENT - PCV; BG VENT RATE 16 set
[2020-01-16] MEDS ORDERED: SODIUM BICARBONATE 8.4% 1 MEQ/ML 50ML SYR IV NR (14:15)
[2020-01-16] MEDS: DEXTROSE 5% WATER 1,000 ML IV SCH (14:23)
[2020-01-16] MEDS: FAMOTIDINE 20MG/2ML VIAL IV SCH (20:10)
[2020-01-17] VITALS (101 sets, daily range): BP systolic 92–205; BP diastolic 48–120
[2020-01-17] MEDS: FENTANYL CITRATE/PF 1,000 MCG in SODIUM CHLORIDE 0.9% 80 ML IV PRN ×2 (00:26→20:05)
[2020-01-17] MEDS: MIDAZOLAM HCL 100 MG in DEXT 5% WATER 80 ML IV PRN (00:47)
[2020-01-17] MEDS: DEXTROSE 5% WATER 1,000 ML IV SCH ×2 (05:25→23:45)
[2020-01-17 05:26] LABS: HEMATOCRIT. 32.8 % (42.0-52.0); HEMOGLOBIN. 10.6 g/dL (14.0-18.0); MEAN CORPUSCULAR HEMOGLOBIN 23.1 pg (28.0-32.0); MEAN CORPUSCULAR VOLUME 71.8 fL (80.0-94.0); MEAN PLATELET VOLUME 9.8 fl (7.4-10.4); PLATELET 163 x1000/uL (130-400); RED BLOOD CELL COUNT 4.57 mill/uL (4.7-6.1); RED CELL DISTRIBUTION WIDTH 14.1 % (11.6-14.6)
[2020-01-17 07:45] LABS: PLATELET ESTIMATE NORMAL
[2020-01-17] MEDS: ZINC SULFATE 220 MG ( 50 ) CAPSULE PO SCH (08:42)
[2020-01-17] MEDS: METHYLPREDNISOLONE SOD SUCC 40 MG/ML VIAL IV SCH (08:42)
[2020-01-17] MEDS: ENOXAPARIN 80MG/0.8ML SYR SUBCUT SCH (08:42)
[2020-01-17] MEDS ORDERED: LABETALOL HCL 100MG TABLET PO ONE (12:00)
[2020-01-17] MEDS: DOPAMINE 800MG PREMIX (DOUBLE) 250 ML IV PRN (15:26)
[2020-01-17] MEDS: AMLODIPINE 5MG TABLET PO SCH (18:21)
[2020-01-17] MEDS: FAMOTIDINE 20MG/2ML VIAL IV SCH (21:15)
[2020-01-18] VITALS (93 sets, daily range): BP systolic 87–146; BP diastolic 57–96
[2020-01-18 05:39] LABS: HEMATOCRIT. 32.4 % (42.0-52.0); HEMOGLOBIN. 10.4 g/dL (14.0-18.0); MEAN CORPUSCULAR HEMOGLOBIN 23.3 pg (28.0-32.0); MEAN CORPUSCULAR VOLUME 72.3 fL (80.0-94.0); MEAN PLATELET VOLUME 9.8 fl (7.4-10.4); PLATELET 146 x1000/uL (130-400); RED BLOOD CELL COUNT 4.49 mill/uL (4.7-6.1); RED CELL DISTRIBUTION WIDTH 14.4 % (11.6-14.6)
[2020-01-18 07:49] LABS: PLATELET ESTIMATE NORMAL
[2020-01-18 08:51] LABS: BG BASE EXCESS 4.9 mmol/L (-2.0-2.0); BG CARBOXYHEMOGLOBIN 0.3 % (0.5-1.5); BG DEOXYHEMOGLOBIN 1.8 % (0.0-5.0); BG FRACTION INSPIRED OXYGEN 70; BG METHEMOGLOBIN 0.3 % (0.0-1.5); BG OXYGEN SATURATION 98.2 % (92.0-98.5); BG OXYHEMOGLOBIN 97.6 % (94.0-97.0); BG PCO2 41.2 mmHg (35.0-45.0); BG PH 7.466 (7.350-7.450); BG PO2 126.1 mmHg (75.0-100.0); BG SAMPLE SITE RIGHT RADIAL; BG TIDAL VOLUME(mL) 450 mL; BG TOTAL HEMOGLOBIN 11.3 g/dL (12.0-18.0); BG VENT MODE PRVC; BG VENT RATE 16 set
[2020-01-18] MEDS: ENOXAPARIN 80MG/0.8ML SYR SUBCUT SCH ×2 (09:00→20:31)
[2020-01-18] MEDS: AMLODIPINE 5MG TABLET PO SCH (09:00)
[2020-01-18] MEDS: MIDAZOLAM HCL 100 MG in DEXT 5% WATER 80 ML IV PRN (10:23)
[2020-01-18] MEDS: ZINC SULFATE 220 MG ( 50 ) CAPSULE PO SCH (10:23)
[2020-01-18] MEDS: DEXTROSE 5% WATER 1,000 ML IV SCH (17:58)
[2020-01-18] MEDS: FENTANYL CITRATE/PF 1,000 MCG in SODIUM CHLORIDE 0.9% 80 ML IV PRN (20:17)
[2020-01-18] MEDS: FAMOTIDINE 20MG/2ML VIAL IV SCH (20:30)
[2020-01-19] VITALS (92 sets, daily range): BP systolic 81–149; BP diastolic 51–92
[2020-01-19] MEDS: MIDAZOLAM HCL 100 MG in DEXT 5% WATER 80 ML IV PRN (04:58)
[2020-01-19 05:40] LABS: HEMATOCRIT. 31.2 % (42.0-52.0); MEAN CORPUSCULAR VOLUME 71.5 fL (80.0-94.0); MEAN PLATELET VOLUME 9.7 fl (7.4-10.4); PLATELET 133 x1000/uL (130-400); RED BLOOD CELL COUNT 4.36 mill/uL (4.7-6.1); RED CELL DISTRIBUTION WIDTH 14.4 % (11.6-14.6)
[2020-01-19] MEDS: ENOXAPARIN 80MG/0.8ML SYR SUBCUT SCH ×2 (09:00→21:21)
[2020-01-19] MEDS: AMLODIPINE 5MG TABLET PO SCH (09:00)
[2020-01-19 09:32] LABS: PLATELET ESTIMATE NORMAL
[2020-01-19] MEDS: ZINC SULFATE 220 MG ( 50 ) CAPSULE PO SCH (10:17)
[2020-01-19 10:28] LABS: BG BASE EXCESS 4.3 mmol/L (-2.0-2.0); BG CARBOXYHEMOGLOBIN 0.3 % (0.5-1.5); BG DEOXYHEMOGLOBIN 4.8 % (0.0-5.0); BG FRACTION INSPIRED OXYGEN 60; BG HCO3 ACT 28.7 mmol/L (22.0-26.0); BG METHEMOGLOBIN 0.3 % (0.0-1.5); BG OXYGEN SATURATION 95.2 % (92.0-98.5); BG OXYHEMOGLOBIN 94.6 % (94.0-97.0); BG PCO2 42.3 mmHg (35.0-45.0); BG PH 7.449 (7.350-7.450); BG PO2 77.1 mmHg (75.0-100.0); BG SAMPLE SITE RIGHT RADIAL; BG TIDAL VOLUME(mL) 450 mL; BG TOTAL HEMOGLOBIN 9.8 g/dL (12.0-18.0); BG VENT MODE PRVC; BG VENT RATE 16 set
[2020-01-19] MEDS: DEXTROSE 5% WATER 1,000 ML IV SCH (14:31)
[2020-01-19] MEDS: FENTANYL CITRATE/PF 1,000 MCG in SODIUM CHLORIDE 0.9% 80 ML IV PRN (14:31)
[2020-01-19] MEDS: ACETAMINOPHEN 325MG TABLET PO PRN (17:25)
[2020-01-19] MEDS: FAMOTIDINE 20MG/2ML VIAL IV SCH (21:21)
[2020-01-20] VITALS (96 sets, daily range): BP systolic 80–114; BP diastolic 39–72
[2020-01-20] MEDS: MIDAZOLAM HCL 100 MG in DEXT 5% WATER 80 ML IV PRN ×4 (01:16→21:10)
[2020-01-20] MEDS: FENTANYL CITRATE/PF 1,000 MCG in SODIUM CHLORIDE 0.9% 80 ML IV PRN ×3 (01:17→21:08)
[2020-01-20 04:56] LABS: HEMATOCRIT. 27.9 % (42.0-52.0); HEMOGLOBIN. 9.1 g/dL (14.0-18.0); MEAN CORPUSCULAR HEMOGLOBIN 23.3 pg (28.0-32.0); MEAN PLATELET VOLUME 10.2 fl (7.4-10.4); PLATELET 107 x1000/uL (130-400); RED BLOOD CELL COUNT 3.93 mill/uL (4.7-6.1)
[2020-01-20] MEDS: DEXTROSE 5% WATER 1,000 ML IV SCH (08:32)
[2020-01-20] MEDS: ENOXAPARIN 80MG/0.8ML SYR SUBCUT SCH (08:54)
[2020-01-20] MEDS: ZINC SULFATE 220 MG ( 50 ) CAPSULE PO SCH (08:54)
[2020-01-20] MEDS: AMLODIPINE 5MG TABLET PO SCH (08:55)
[2020-01-20 09:44] LABS: BG BASE EXCESS 3.3 mmol/L (-2.0-2.0); BG CARBOXYHEMOGLOBIN 0.3 % (0.5-1.5); BG DEOXYHEMOGLOBIN 6.1 % (0.0-5.0); BG FRACTION INSPIRED OXYGEN 100; BG HCO3 ACT 29.9 mmol/L (22.0-26.0); BG METHEMOGLOBIN 0.3 % (0.0-1.5); BG OXYGEN SATURATION 93.9 % (92.0-98.5); BG OXYHEMOGLOBIN 93.3 % (94.0-97.0); BG PCO2 56.5 mmHg (35.0-45.0); BG PH 7.342 (7.350-7.450); BG PO2 76.6 mmHg (75.0-100.0); BG SAMPLE SITE RIGHT RADIAL; BG TIDAL VOLUME(mL) 450 mL; BG VENT MODE VENT - PCV; BG VENT RATE 16 set
[2020-01-20 10:54] LABS: PLATELET ESTIMATE SLIGHTLY DECREASED
[2020-01-20] MEDS ORDERED: KCL 20MEQ/100ML PREMIX 100 ML IV SCH (12:00)
[2020-01-20] MEDS: PHENYLEPHRINE 40 MG in DEXT 5% WATER 246 ML IV PRN (17:35)
[2020-01-20] MEDS: FAMOTIDINE 20MG/2ML VIAL IV SCH (21:21)
[2020-01-21] VITALS (94 sets, daily range): BP systolic 79–108; BP diastolic 46–66
[2020-01-21 06:11] LABS: HEMATOCRIT. 25.2 % (42.0-52.0); HEMOGLOBIN. 8.3 g/dL (14.0-18.0); MEAN CORPUSCULAR HEMOGLOBIN 23.7 pg (28.0-32.0); MEAN CORPUSCULAR VOLUME 72.3 fL (80.0-94.0); PLATELET 102 x1000/uL (130-400); RED BLOOD CELL COUNT 3.48 mill/uL (4.7-6.1); RED CELL DISTRIBUTION WIDTH 14.2 % (11.6-14.6)
[2020-01-21 08:06] LABS: PLATELET ESTIMATE SLIGHTLY DECREASED
[2020-01-21] MEDS: FENTANYL CITRATE/PF 1,000 MCG in SODIUM CHLORIDE 0.9% 80 ML IV PRN ×3 (08:21→22:15)
[2020-01-21] MEDS: ZINC SULFATE 220 MG ( 50 ) CAPSULE PO SCH (08:32)
[2020-01-21] MEDS: ENOXAPARIN 80MG/0.8ML SYR SUBCUT SCH (08:32)
[2020-01-21 08:50] LABS: BG BASE EXCESS 3.2 mmol/L (-2.0-2.0); BG CARBOXYHEMOGLOBIN 0.3 % (0.5-1.5); BG DEOXYHEMOGLOBIN 2.8 % (0.0-5.0); BG FRACTION INSPIRED OXYGEN 100; BG METHEMOGLOBIN 0.3 % (0.0-1.5); BG OXYGEN SATURATION 97.2 % (92.0-98.5); BG OXYHEMOGLOBIN 96.6 % (94.0-97.0); BG PCO2 43.8 mmHg (35.0-45.0); BG PH 7.423 (7.350-7.450); BG PO2 97.1 mmHg (75.0-100.0); BG SAMPLE SITE RIGHT BRACHIAL; BG TIDAL VOLUME(mL) 450 mL; BG TOTAL HEMOGLOBIN 8.6 g/dL (12.0-18.0); BG VENT MODE VENT - PCVC; BG VENT RATE 16 set
[2020-01-21] MEDS: MIDAZOLAM HCL 100 MG in DEXT 5% WATER 80 ML IV PRN ×2 (09:23→19:32)
[2020-01-21] MEDS: FAMOTIDINE 20MG/2ML VIAL IV SCH (21:37)
[2020-01-21] MEDS: ACETAMINOPHEN 325MG TABLET PO PRN (22:14)
[2020-01-22] VITALS (94 sets, daily range): BP systolic 80–115; BP diastolic 45–71
[2020-01-22] MEDS: FENTANYL CITRATE/PF 1,000 MCG in SODIUM CHLORIDE 0.9% 80 ML IV PRN ×3 (06:10→19:20)
[2020-01-22] MEDS: MIDAZOLAM HCL 100 MG in DEXT 5% WATER 80 ML IV PRN ×2 (06:12→14:44)
[2020-01-22] MEDS: PHENYLEPHRINE 40 MG in DEXT 5% WATER 246 ML IV PRN (06:15)
[2020-01-22] MEDS: ENOXAPARIN 80MG/0.8ML SYR SUBCUT SCH (08:29)
[2020-01-22] MEDS: ZINC SULFATE 220 MG ( 50 ) CAPSULE PO SCH (08:29)
[2020-01-22 10:40] LABS: BG BASE EXCESS 0.6 mmol/L (-2.0-2.0); BG CARBOXYHEMOGLOBIN 0.3 % (0.5-1.5); BG DEOXYHEMOGLOBIN 10.2 % (0.0-5.0); BG FRACTION INSPIRED OXYGEN 100; BG HCO3 ACT 25.4 mmol/L (22.0-26.0); BG METHEMOGLOBIN 0.2 % (0.0-1.5); BG OXYGEN SATURATION 89.7 % (92.0-98.5); BG OXYHEMOGLOBIN 89.3 % (94.0-97.0); BG PCO2 41.2 mmHg (35.0-45.0); BG PH 7.407 (7.350-7.450); BG PO2 59.7 mmHg (75.0-100.0); BG SAMPLE SITE RIGHT RADIAL; BG TIDAL VOLUME(mL) 450 mL; BG TOTAL HEMOGLOBIN 9.1 g/dL (12.0-18.0); BG VENT MODE VENT- PRVC; BG VENT RATE 18 set
[2020-01-22] MEDS: ACETAMINOPHEN 325MG TABLET PO PRN (14:21)
[2020-01-22] MEDS: METHYLPREDNISOLONE SOD SUCC 40 MG/ML VIAL IV SCH (16:03)
[2020-01-22] MEDS: FAMOTIDINE 20MG/2ML VIAL IV SCH (21:05)
[2020-01-23] VITALS (94 sets, daily range): BP systolic 86–148; BP diastolic 44–82
[2020-01-23] MEDS: MIDAZOLAM HCL 100 MG in DEXT 5% WATER 80 ML IV PRN ×2 (00:45→11:21)
[2020-01-23 01:33] LABS: BG BASE EXCESS 1.2 mmol/L (-2.0-2.0); BG CARBOXYHEMOGLOBIN 0.4 % (0.5-1.5); BG DEOXYHEMOGLOBIN 15.1 % (0.0-5.0); BG FRACTION INSPIRED OXYGEN 100; BG HCO3 ACT 28.4 mmol/L (22.0-26.0); BG METHEMOGLOBIN 0.2 % (0.0-1.5); BG OXYGEN SATURATION 84.8 % (92.0-98.5); BG OXYHEMOGLOBIN 84.3 % (94.0-97.0); BG PCO2 55.5 mmHg (35.0-45.0); BG PH 7.327 (7.350-7.450); BG SAMPLE SITE RIGHT FEMORAL; BG TIDAL VOLUME(mL) 450 mL; BG TOTAL HEMOGLOBIN 14.6 g/dL (12.0-18.0); BG VENT MODE PRVC/AC.; BG VENT RATE 18 set
[2020-01-23] MEDS: FENTANYL CITRATE/PF 1,000 MCG in SODIUM CHLORIDE 0.9% 80 ML IV PRN ×3 (02:01→16:33)
[2020-01-23 06:07] LABS: HEMOGLOBIN. 8.4 g/dL (14.0-18.0); MEAN CORPUSCULAR HEMOGLOBIN 23.7 pg (28.0-32.0); MEAN CORPUSCULAR VOLUME 73.3 fL (80.0-94.0); MEAN PLATELET VOLUME 11.2 fl (7.4-10.4); PLATELET 105 x1000/uL (130-400); RED BLOOD CELL COUNT 3.55 mill/uL (4.7-6.1); RED CELL DISTRIBUTION WIDTH 14.8 % (11.6-14.6)
[2020-01-23] MEDS: DOPAMINE 800MG PREMIX (DOUBLE) 250 ML IV PRN (07:28)
[2020-01-23 08:47] LABS: BG BASE EXCESS 0.6 mmol/L (-2.0-2.0); BG DEOXYHEMOGLOBIN 11.3 % (0.0-5.0); BG FRACTION INSPIRED OXYGEN 100; BG METHEMOGLOBIN 0.1 % (0.0-1.5); BG OXYGEN SATURATION 88.7 % (92.0-98.5); BG OXYHEMOGLOBIN 88.6 % (94.0-97.0); BG PCO2 52.7 mmHg (35.0-45.0); BG PH 7.327 (7.350-7.450); BG SAMPLE SITE RIGHT RADIAL; BG TIDAL VOLUME(mL) 450 mL; BG TOTAL HEMOGLOBIN 8.4 g/dL (12.0-18.0); BG VENT MODE VENT- PRVC; BG VENT RATE 18 set
[2020-01-23] MEDS: METHYLPREDNISOLONE SOD SUCC 40 MG/ML VIAL IV SCH ×2 (09:31→16:28)
[2020-01-23] MEDS: ENOXAPARIN 80MG/0.8ML SYR SUBCUT SCH (09:31)
[2020-01-23] MEDS: ZINC SULFATE 220 MG ( 50 ) CAPSULE PO SCH (09:31)
[2020-01-23 10:32] LABS: PLATELET ESTIMATE DECREASED
[2020-01-23] MEDS: FAMOTIDINE 20MG/2ML VIAL IV SCH (21:57)
[2020-01-24] VITALS (89 sets, daily range): BP systolic 96–149; BP diastolic 55–88
[2020-01-24] MEDS: MIDAZOLAM HCL 100 MG in DEXT 5% WATER 80 ML IV PRN ×2 (01:06→15:45)
[2020-01-24] MEDS: FENTANYL CITRATE/PF 1,000 MCG in SODIUM CHLORIDE 0.9% 80 ML IV PRN ×2 (02:51→15:45)
[2020-01-24 10:05] LABS: BG CARBOXYHEMOGLOBIN 0.3 % (0.5-1.5); BG DEOXYHEMOGLOBIN 8.9 % (0.0-5.0); BG FRACTION INSPIRED OXYGEN 100; BG HCO3 ACT 26.2 mmol/L (22.0-26.0); BG METHEMOGLOBIN 0.1 % (0.0-1.5); BG OXYGEN SATURATION 91.1 % (92.0-98.5); BG OXYHEMOGLOBIN 90.7 % (94.0-97.0); BG PCO2 44.3 mmHg (35.0-45.0); BG PH 7.389 (7.350-7.450); BG PO2 64.7 mmHg (75.0-100.0); BG SAMPLE SITE RIGHT RADIAL; BG TIDAL VOLUME(mL) 450 mL; BG TOTAL HEMOGLOBIN 8.9 g/dL (12.0-18.0); BG VENT MODE VENT- PRVC; BG VENT RATE 18 set
[2020-01-24] MEDS: ZINC SULFATE 220 MG ( 50 ) CAPSULE PO SCH (10:15)
[2020-01-24] MEDS: ENOXAPARIN 80MG/0.8ML SYR SUBCUT SCH (10:16)
[2020-01-24] MEDS: METHYLPREDNISOLONE SOD SUCC 40 MG/ML VIAL IV SCH ×2 (10:16→17:41)
[2020-01-24] MEDS: FAMOTIDINE 20MG/2ML VIAL IV SCH (21:21)
[2020-01-25] VITALS (96 sets, daily range): BP systolic 116–152; BP diastolic 55–94
[2020-01-25] MEDS: MIDAZOLAM HCL 100 MG in DEXT 5% WATER 80 ML IV PRN ×2 (01:52→13:37)
[2020-01-25] MEDS: FENTANYL CITRATE/PF 1,000 MCG in SODIUM CHLORIDE 0.9% 80 ML IV PRN ×3 (01:53→22:21)
[2020-01-25] MEDS: ENOXAPARIN 80MG/0.8ML SYR SUBCUT SCH (08:11)
[2020-01-25] MEDS: METHYLPREDNISOLONE SOD SUCC 40 MG/ML VIAL IV SCH ×2 (08:11→17:19)
[2020-01-25] MEDS: ZINC SULFATE 220 MG ( 50 ) CAPSULE PO SCH (08:11)
[2020-01-25 08:53] LABS: BG BASE EXCESS 1.4 mmol/L (-2.0-2.0); BG CARBOXYHEMOGLOBIN 0.3 % (0.5-1.5); BG DEOXYHEMOGLOBIN 10.4 % (0.0-5.0); BG HCO3 ACT 26.4 mmol/L (22.0-26.0); BG METHEMOGLOBIN 0.3 % (0.0-1.5); BG OXYGEN SATURATION 89.5 % (92.0-98.5); BG PCO2 43.5 mmHg (35.0-45.0); BG PH 7.401 (7.350-7.450); BG PO2 59.7 mmHg (75.0-100.0); BG SAMPLE SITE RIGHT RADIAL; BG TIDAL VOLUME(mL) 450 mL; BG TOTAL HEMOGLOBIN 9.6 g/dL (12.0-18.0); BG VENT MODE VENT - A/C; BG VENT RATE 18 set
[2020-01-25] MEDS: SODIUM CHLORIDE 0.9% 1,000 ML IV SCH (18:48)
[2020-01-25] MEDS: FAMOTIDINE 20MG/2ML VIAL IV SCH (21:24)
[2020-01-26] VITALS (96 sets, daily range): BP systolic 100–159; BP diastolic 66–97
[2020-01-26] MEDS: MIDAZOLAM HCL 100 MG in DEXT 5% WATER 80 ML IV PRN ×3 (00:23→21:21)
[2020-01-26 05:44] LABS: HEMATOCRIT. 27.3 % (42.0-52.0); MEAN CORPUSCULAR HEMOGLOBIN 23.7 pg (28.0-32.0); MEAN CORPUSCULAR VOLUME 71.9 fL (80.0-94.0); MEAN PLATELET VOLUME 10.4 fl (7.4-10.4); PLATELET 127 x1000/uL (130-400); RED CELL DISTRIBUTION WIDTH 14.7 % (11.6-14.6)
[2020-01-26 06:22] LABS: PHOSPHORUS 3.4 mg/dL (2.5-4.9)
[2020-01-26 08:22] LABS: BG BASE EXCESS 1.1 mmol/L (-2.0-2.0); BG CARBOXYHEMOGLOBIN 0.3 % (0.5-1.5); BG DEOXYHEMOGLOBIN 8.1 % (0.0-5.0); BG HCO3 ACT 25.8 mmol/L (22.0-26.0); BG METHEMOGLOBIN 0.3 % (0.0-1.5); BG OXYGEN SATURATION 91.9 % (92.0-98.5); BG OXYHEMOGLOBIN 91.3 % (94.0-97.0); BG PCO2 41.7 mmHg (35.0-45.0); BG PO2 64.4 mmHg (75.0-100.0); BG SAMPLE SITE RIGHT RADIAL; BG TIDAL VOLUME(mL) 450 mL; BG VENT MODE VENT - A/C; BG VENT RATE 18 set
[2020-01-26] MEDS: ZINC SULFATE 220 MG ( 50 ) CAPSULE PO SCH (08:22)
[2020-01-26] MEDS: ENOXAPARIN 80MG/0.8ML SYR SUBCUT SCH (08:22)
[2020-01-26] MEDS: METHYLPREDNISOLONE SOD SUCC 40 MG/ML VIAL IV SCH ×2 (08:22→16:26)
[2020-01-26 09:24] LABS: NUCLEATED RED BLOOD CELLS 1 /100 WBC; PLATELET ESTIMATE SLIGHTLY DECREASED
[2020-01-26] MEDS: FENTANYL CITRATE/PF 1,000 MCG in SODIUM CHLORIDE 0.9% 80 ML IV PRN ×2 (11:39→20:48)
[2020-01-26] MEDS: SODIUM CHLORIDE 0.9% 1,000 ML IV SCH (14:12)
[2020-01-26] MEDS: FAMOTIDINE 20MG/2ML VIAL IV SCH (20:51)
[2020-01-27] VITALS (93 sets, daily range): BP systolic 87–177; BP diastolic 65–108
[2020-01-27 04:48] LABS: HEMATOCRIT. 26.4 % (42.0-52.0); HEMOGLOBIN. 8.7 g/dL (14.0-18.0); MEAN CORPUSCULAR VOLUME 73.1 fL (80.0-94.0); MEAN PLATELET VOLUME 9.9 fl (7.4-10.4); PLATELET 120 x1000/uL (130-400); RED BLOOD CELL COUNT 3.61 mill/uL (4.7-6.1); RED CELL DISTRIBUTION WIDTH 14.7 % (11.6-14.6)
[2020-01-27] MEDS: FENTANYL CITRATE/PF 1,000 MCG in SODIUM CHLORIDE 0.9% 80 ML IV PRN ×2 (08:15→18:42)
[2020-01-27] MEDS: MIDAZOLAM HCL 100 MG in DEXT 5% WATER 80 ML IV PRN ×3 (08:16→18:41)
[2020-01-27] MEDS: ENOXAPARIN 80MG/0.8ML SYR SUBCUT SCH (09:14)
[2020-01-27] MEDS: METHYLPREDNISOLONE SOD SUCC 40 MG/ML VIAL IV SCH ×2 (09:14→17:44)
[2020-01-27] MEDS: ZINC SULFATE 220 MG ( 50 ) CAPSULE PO SCH (09:14)
[2020-01-27 09:37] LABS: BG BASE EXCESS -0.8 mmol/L (-2.0-2.0); BG CARBOXYHEMOGLOBIN 0.3 % (0.5-1.5); BG DEOXYHEMOGLOBIN 4.8 % (0.0-5.0); BG FRACTION INSPIRED OXYGEN 100; BG HCO3 ACT 24.8 mmol/L (22.0-26.0); BG METHEMOGLOBIN 0.3 % (0.0-1.5); BG OXYGEN SATURATION 95.2 % (92.0-98.5); BG OXYHEMOGLOBIN 94.6 % (94.0-97.0); BG PCO2 45.6 mmHg (35.0-45.0); BG PH 7.354 (7.350-7.450); BG SAMPLE SITE RIGHT RADIAL; BG TIDAL VOLUME(mL) 450 mL; BG TOTAL HEMOGLOBIN 8.9 g/dL (12.0-18.0); BG VENT MODE VENT- PRVC; BG VENT RATE 18 set
[2020-01-27 10:36] LABS: NUCLEATED RED BLOOD CELLS 3 /100 WBC; PLATELET ESTIMATE DECREASED
[2020-01-27] MEDS ORDERED: PROPOFOL 10MG/ML 100ML 100 ML IV PRN ×2 (13:30→13:36)
[2020-01-27] MEDS ORDERED: PROPOFOL 200MG/20ML VIAL IV NR (13:45)
[2020-01-27] MEDS ORDERED: METOPROLOL TARTRATE 25MG TABLET NG NR (17:45)
[2020-01-27 18:48] LABS: HEMATOCRIT 26.6 % (42.0-52.0); HEMOGLOBIN 8.6 g/dL (14.0-18.0)
[2020-01-27 19:08] LABS: PARTIAL THROMBOPLASTIN TIME 26.8 sec (23.4-31.0); PROTHROMBIN TIME 10.7 sec (9.6-11.0)
[2020-01-27] MEDS: FAMOTIDINE 20MG/2ML VIAL IV SCH (21:10)
[2020-01-28] VITALS (55 sets, daily range): BP systolic 52–187; BP diastolic 12–114
[2020-01-28] MEDS: PHENYLEPHRINE 40 MG in DEXT 5% WATER 246 ML IV PRN (05:00)
[2020-01-28 05:34] LABS: HEMATOCRIT. 26.1 % (42.0-52.0); HEMOGLOBIN. 7.9 g/dL (14.0-18.0); MEAN CORPUSCULAR HEMOGLOBIN 24.1 pg (28.0-32.0); MEAN CORPUSCULAR VOLUME 79.3 fL (80.0-94.0); MEAN PLATELET VOLUME 10.2 fl (7.4-10.4); PLATELET 185 x1000/uL (130-400); RED BLOOD CELL COUNT 3.29 mill/uL (4.7-6.1); RED CELL DISTRIBUTION WIDTH 15.9 % (11.6-14.6)
[2020-01-28] MEDS ORDERED: INSULIN REGULAR (HUMULIN R) 300UNITS/3ML SUBCUT SCH (07:30)
[2020-01-28] MEDS ORDERED: DEXTROSE 50% WATER 50ML SYRINGE IV SCH (07:30)
[2020-01-28] MEDS ORDERED: SODIUM POLYSTYRENE SULFONATE 15 G/60 ML BOT NG SCH (08:00)
[2020-01-28] MEDS ORDERED: SODIUM BICARBONATE 8.4% 1 MEQ/ML 50ML SYR IV SCH (08:00)
[2020-01-28] MEDS ORDERED: PHENYLEPHRINE 80 MG in DEXT 5% WATER 492 ML IV PRN (08:45)
[2020-01-28] MEDS ORDERED: PHENYLEPHRINE 80 MG in DEXT 5% WATER 500 ML IV PRN (08:45)
[2020-01-28 08:59] LABS: BG BASE EXCESS -20.1 mmol/L (-2.0-2.0); BG CARBOXYHEMOGLOBIN 0.8 % (0.5-1.5); BG DEOXYHEMOGLOBIN 7.9 % (0.0-5.0); BG HCO3 ACT 12.8 mmol/L (22.0-26.0); BG METHEMOGLOBIN 0.3 % (0.0-1.5); BG PCO2 91.4 mmHg (35.0-45.0); BG PH 6.764 (7.350-7.450); BG PO2 103.1 mmHg (75.0-100.0); BG SAMPLE SITE RIGHT RADIAL; BG TIDAL VOLUME(mL) 450 mL; BG TOTAL HEMOGLOBIN 5.3 g/dL (12.0-18.0); BG VENT MODE VENT - A/C; BG VENT RATE 18 set
[2020-01-28] MEDS ORDERED: PHENYLEPHRINE 40 MG in DEXT 5% WATER 246 ML IV PRN (09:00)
[2020-01-28 12:51] LABS: NUCLEATED RED BLOOD CELLS 6 /100 WBC
[2020-01-28 12:52] LABS: PLATELET ESTIMATE NORMAL
== END 2020-01-28 09:24 | disposition expired | DRG 3 ==
LOC: ER 20:05 → 7WST 12-30 00:27 → EDBEDREQ 12-30 00:44 → EDBEDREQSVC 12-30 00:44 → EDBEDREQTM 12-30 00:44 → EDBEDREQDT 12-30 00:44 → ENRESERV 12-30 22:33 → 7WST 01-03 21:30 → MICUNO 01-06 02:26
PROVIDERS: ADMIT Family Medicine Adult Medicine; ATTEND Family Medicine Adult Medicine
PROC: 5A1955Z Respiratory Ventilation, Greater than 96 Consecutive Hours (ICD-10-PCS; principal; 2020-01-05)
PROC: 0B113F4 Bypass Trachea to Cutaneous with Tracheostomy Device, Percutaneous Approach (ICD-10-PCS; 2020-01-05)
PROC: 0GTJ0ZZ Resection of Thyroid Gland Isthmus, Open Approach (ICD-10-PCS; 2020-01-05)
PROC: 0BH18EZ Insertion of Endotracheal Airway into Trachea, Via Natural or Artificial Opening Endoscopic (ICD-10-PCS; 2020-01-05)
DX: A41.89 Other specified sepsis (principal); U07.1 COVID-19; J12.89 Other viral pneumonia; N17.0 Acute kidney failure with tubular necrosis; J96.01 Acute respiratory failure with hypoxia; R65.21 Severe sepsis with septic shock; N17.9 Acute kidney failure, unspecified; N39.0 Urinary tract infection, site not specified; E87.0 Hyperosmolality and hypernatremia; B37.0 Candidal stomatitis; T82.838A Hemorrhage due to vascular prosthetic devices, implants and grafts, initial encounter; E86.0 Dehydration; N18.9 Chronic kidney disease, unspecified; B96.4 Proteus (mirabilis) (morganii) as the cause of diseases classified elsewhere; B97.89 Other viral agents as the cause of diseases classified elsewhere; D64.9 Anemia, unspecified; D69.6 Thrombocytopenia, unspecified; E83.41 Hypermagnesemia; E87.6 Hypokalemia; I12.9 Hypertensive chronic kidney disease with stage 1 through stage 4 chronic kidney disease, or unspecified chronic kidney disease; Y83.8 Other surgical procedures as the cause of abnormal reaction of the patient, or of later complication, without mention of misadventure at the time of the procedure; Z66 Do not resuscitate; Z86.73 Personal history of transient ischemic attack (TIA), and cerebral infarction without residual deficits; Z86.74 Personal history of sudden cardiac arrest; Y92.89 Other specified places as the place of occurrence of the external cause; Z88.8 Allergy status to other drugs, medicaments and biological substances; Z79.899 Other long term (current) drug therapy
CPT/HCPCS: 36415; 36600; 71045; 76937; 80048; 80053; 81003; 82375; 82550; 82728; 82805; 82962; 83605; 83615; 83735; 83880; 84100; 84145; 84439; 84443; 84478; 84481; 84484; 85014; 85018; 85025; 85027; 85049; 85379; 86140; 87070; 87077; 87186; 87635; 93005; 94003; 96365; 96367; 97162; 97530; 99291; C1725; J0456; J0696; J1265; J1644; J1650; J1815; J2250; J2370; J2543; J2704; J2920; J3010; J3480; J3490; J7030; J7050; J7060; J7070; Q9967; U0003-CS